=== PATIENT | female | born 1995 | race Two or more races ===

== ENCOUNTER 2020-10-19 08:05 | Emergency (ER) | payer OTHER ==
[~2020-10-19] VITALS: Ht 160 cm; Wt 56.7 kg
[2020-10-19] MEDS ORDERED: AMOX1TAB5 PO (12:04)
[2020-10-19] MEDS ORDERED: MUPIROCIN1 G1 TOP (12:04)
[2020-10-19] MEDS ORDERED: HIBICLENS118 ML TOP (12:04)
[2020-10-19] MEDS ORDERED: TYLENOL325 MG PO ×3 (12:09→12:12)
== END 2020-10-19 12:51 | disposition home or self-care (01) ==
LOC: ER 08:05
DX: S91.242A Puncture wound with foreign body of left great toe with damage to nail, initial encounter (principal); W22.8XXA Striking against or struck by other objects, initial encounter; Y93.89 Activity, other specified; Y92.832 Beach as the place of occurrence of the external cause; Y99.8 Other external cause status